=== PATIENT | female | born 1965 | race Hispanic/Latino ===

== ENCOUNTER → 2017-07-28 | Outpatient (CLI) | payer BC ==
[~2017-07-28] MED LIST: BENEFIBER240 GM PO
--- NOTE | 2017-07-28 15:00 | Diagnostic Imaging Report ---
PROCEDURE:X-RAY RIGHT WRIST, COMPLETE COMPARISON:None. INDICATIONS:FALL FINDINGS: There are no fractures, dislocations, lytic or blastic lesions. The bones are well-mineralized. The soft-tissues are unremarkable. CONCLUSION: No acute fracture or dislocation of the right wrist. Dictated by: Rehan Colby M.D. on 07/28/2017 at 15:03 Electronically approved by: Rehan Colby M.D. on 07/28/2017 at 15:03
== END ==
LOC: RAD 14:19
PROVIDERS: ATTEND Family Medicine
DX: S60.211A Contusion of right wrist, initial encounter (principal)

== ENCOUNTER → 2018-07-30 | Day surgery (SDC) | payer BC ==
[~2018-07-30] MED LIST changes: +ACIDOPHILUS1 EAC1 PO; +ACTOS15 MG PO; +ASPIR 8181 MG PO; +ATORVASTATIN CA20 MG PO; +FENTANYL CITRATE/PF 100MCG/2 ML INJ ONE; +HYOSCYAMINE SULFATE 0.5 MG/ML INJ ONE; +LISINOPRIL10 MG PO; +METFORMIN HCL500 MG PO; +METOPROLOL SUCC25 MG PO; +MIDAZOLAM HCL 2 MG/2 ML VIAL ONE; +PROPOFOL IV EMULSION 10 MG/ML 50 ML VIAL ONE
[2018-07-30 09:30] VITALS: BP 120/59
--- NOTE | 2018-07-30 09:47 | Operative Report ---
DATE OF PROCEDURE: 07/30/2018 SURGEON: Josias Lane MD PROCEDURES: Colonoscopy with polypectomy. INDICATION FOR COLONOSCOPY: Surveillance colonoscopy, personal history of colon polyps. MEDICATIONS: The patient was done under MAC, please see anesthesiologist's note. PROCEDURE IN DETAIL: With the patient in left lateral decubitus position, flexible fiberoptic Olympus colonoscope was inserted into the rectum with ease and advanced all the way to the cecum. It was then withdrawn slowly. Mucosa overlying the cecum, ascending colon, transverse colon appeared to be within normal limits. One minute hyperplastic-appearing polyp was hot biopsied from the descending colon. Four polyps were hot biopsied, one polyp was snared from the sigmoid. The rectum appeared to be within normal limits. The scope was then retroflexed into the distal rectum and small internal hemorrhoids were noted, none of which was actively bleeding. The scope was then straightened out, it was subsequently withdrawn. The patient tolerated procedure well. IMPRESSION: 1. Descending colon polyp, hot biopsied. 2. Sigmoid colon polyps x5, one snared and four hot biopsied. 3. Internal hemorrhoids, none actively bleeding. PLAN: Follow up histology. Initiate high-fiber, low-fat diet. Initiate high-fiber supplement. The patient might benefit from a followup colonoscopy in [address] MD [facility] [place]/[facility] /[id number] cc: Gume Bradley MD
--- OUTSIDE RECORDS SUMMARY | 2018-08-01 13:13 | XMS REPORT ---
[facility] Address Unknown Phone Unavailable Care Team Providers Care Outcomes Manager Name Role Phone MANJEET MCMILLAN Unavailable Unavailable Payers Payer Name Policy Type Policy Number Effective Date Expiration Date Problems This patient has no known problems. Allergies, Adverse Reactions, Alerts Allergy Name Allergy Type Status Severity Reaction(s) Onset Date Inactive Date Treating Clinician Comments sulfamethoxazole DA Active 2016-05-09 00:00:00 trimethoprim DA Active SV 2016-05-09 00:00:00 Medications This patient has no known medications. Results Test Description Test Time Test Comments Text Results Atomic Results Result Comments WRIST COMPLETE RIGHT 2017-07-28 15:03:00 [place] [address] Patient Name: ABIDA MARIE MR #: [id number] : 1965 Age/Sex: 52/F Req #: [id number] Adm Physician: Ordered by: MANJEET MCMILLAN MD Report #: [id number] Location: [facility] Room/Bed: Procedure: [id number] DX/WRIST COMPLETE RIGHT Exam Date: 07/28/17 Exam Time: 1435 REPORT STATUS: Signed PROCEDURE: X-RAY RIGHT WRIST, COMPLETE COMPARISON: None. INDICATIONS: FALL FINDINGS: There are no fractures, dislocations, lytic or blastic lesions. The bones are well-mineralized. The soft-tissues are unremarkable. CONCLUSION: No acute fracture or dislocation of the right wrist. Dictated by: Rehan Siu M.D. on 07/28/2017 at 15:03 Electronically approved by: Rehan Siu M.D. on 07/28/2017 at 15:03 Dictated By: REHAN SIU MD [id number] Transcribed By: JUJU on 07/28/17 1503 COPY TO: MANJEET MCMILLAN MD
== END | disposition home or self-care (01) ==
LOC: OR 05:30
PROVIDERS: ATTEND Internal Medicine Gastroenterology
DX: Z12.11 Encounter for screening for malignant neoplasm of colon (principal); K63.5 Polyp of colon; K64.8 Other hemorrhoids; Z01.810 Encounter for preprocedural cardiovascular examination; Z80.0 Family history of malignant neoplasm of digestive organs
CPT/HCPCS: 45384; 45385; 93005; J1980; J2250; J2704